=== PATIENT | female | born 1965 | race Caucasian/White ===

== ENCOUNTER 2018-03-03 16:01 | Emergency (ER) | payer OTHER ==
[2018-03-03] MEDS: LORAZEPAM 1 MG TAB PO (17:29)
[2018-03-03 17:42] LABS: ADD MAN DIFF? NO
[2018-03-03 17:44] LABS: BASOPHIL # 0.1 10^3/ul (0.0-0.1); BASOPHILS % 0.7 % (0.0-2.0); EOSINOPHILS # 0.2 10^3/ul (0.0-0.5); EOSINOPHILS % 2.8 % (0.0-7.0); HEMOGLOBIN 13.4 g/dl (12.0-16.0); LYMPHOCYTES # 2.7 10^3/ul (0.8-2.9); LYMPHOCYTES % 38.2 % (15.0-51.0); MEAN CORPUSCULAR HEMOGLOBIN 28.5 pg (29.0-33.0); MEAN CORPUSCULAR HGB CONC 33.5 g/dl (32.0-37.0); MEAN CORPUSCULAR VOLUME 85.1 fl (82.0-101.0); MEAN PLATELET VOLUME 10.4 fl (7.4-10.4); MONOCYTE # 0.5 10^3/ul (0.3-0.9); MONOCYTES % 7.2 % (0.0-11.0); NEUTROPHIL # 3.5 10^3/ul (1.6-7.5); NEUTROPHILS % 50.4 % (39.0-77.0); PLATELET COUNT 165 10^3/UL (140-415); RED CELL DISTRIBUTION WIDTH 13.5 % (11.5-14.5)
[2018-03-03 18:03] LABS: ALANINE AMINOTRANSFERASE 80 IU/L (13-69); ALBUMIN 4.6 g/dl (3.3-4.9); ALBUMIN/GLOBULIN RATIO 1.53; ALKALINE PHOSPHATASE 81 IU/L (42-121); ANION GAP 15 (8-16); ASPARTATE AMINO TRANSFERASE 40 IU/L (15-46); BILIRUBIN,INDIRECT 0.4 mg/dl (0-1.1); BILIRUBIN,TOTAL 0.4 mg/dl (0.2-1.3); BLOOD UREA NITROGEN 9 mg/dl (7-20); CALCIUM 9.4 mg/dl (8.4-10.2); CARBON DIOXIDE 30 mmol/L (21-31); CHLORIDE 104 mmol/L (97-110); CREATININE 0.76 mg/dl (0.44-1.00); GLUCOSE 95 mg/dl (70-220); SODIUM 145 mmol/L (135-144); TOTAL PROTEIN 7.6 g/dl (6.1-8.1)
[2018-03-03 18:14] LABS: TROPONIN-I < 0.012 ng/ml (0.000-0.120)
== END 2018-03-03 18:55 | disposition home or self-care (01) ==
LOC: FTE 16:01
DX: R06.02 Shortness of breath (principal)
CPT/HCPCS: 36415; 71045; 80053; 84484; 85025; 93005; 99285-25

== ENCOUNTER 2018-03-16 14:41 | Emergency (ER) | payer OTHER ==
[2018-03-16 15:55] LABS: URINE BLOOD (Dip) POC Trace-intact (NEGATIVE); URINE GLUCOSE (Dip) POC Negative (NEGATIVE); URINE KETONES (Dip) POC Trace (NEGATIVE); URINE LEUKOCYTE EST (Dip) POC 2+ (NEGATIVE); URINE NITRITE (Dip) POC Positive (NEGATIVE); URINE TOTAL PROTEIN POC 1+ (NEGATIVE)
[2018-03-16] MEDS: LORAZEPAM 0.5 MG TAB PO (15:56)
[2018-03-16] MEDS: CEPHALEXIN 500 MG CAP PO (16:15)
== END 2018-03-16 16:56 | disposition home or self-care (01) ==
LOC: FTE 14:41
DX: F41.9 Anxiety disorder, unspecified (principal)
CPT/HCPCS: 81003; 93005; 99284

== ENCOUNTER 2018-04-12 07:06 | Day surgery (SDC) | payer OTHER ==
[2018-04-12] MEDS ORDERED: LACTATED RINGER'S 1,000 ML IV (08:00)
[2018-04-12] MEDS ORDERED: LIDOCAINE 100 MG SYRINGE (08:32)
[2018-04-12] MEDS ORDERED: PROPOFOL 40 ML (08:32)
[2018-04-12] MEDS ORDERED: CEFAZOLIN 1 GM INJ (08:32)
[2018-04-12] MEDS ORDERED: FENTAnyl 50 MCG/ML VIAL (08:32)
[2018-04-12] MEDS ORDERED: MIDAZOLAM 1 MG/ML 2 ML INJ (08:35)
[2018-04-12] MEDS ORDERED: DEXAMETHASONE 4 MG/ML 1 ML INJ (09:54)
[2018-04-12] MEDS ORDERED: ONDANSETRON 4 MG INJ (09:55)
[2018-04-12] MEDS ORDERED: METOCLOPRAMIDE 10 MG INJ (09:55)
[2018-04-12] MEDS ORDERED: FAMOTIDINE 20 MG INJ (09:55)
[2018-04-12] MEDS: CEFAZOLIN 2 GM/50 ML (PMX) 50 ML IVPB (10:00)
[2018-04-12] MEDS ORDERED: FENTAnyl 50 MCG/ML VIAL IV ×3 (11:00)
[2018-04-12] MEDS ORDERED: KETOROLAC 30 MG INJ IV ×2 (11:00)
[2018-04-12] MEDS ORDERED: MEPERIDINE 25 MG INJ IV (11:00)
[2018-04-12] MEDS ORDERED: OXYCODONE/ACETAMINOPHEN (5/325) TAB PO ×2 (11:00)
[2018-04-12] MEDS: ONDANSETRON 4 MG INJ IV (11:21)
== END 2018-04-12 12:26 | disposition home or self-care (01) ==
LOC: SDS 07:06
DX: N85.00 Endometrial hyperplasia, unspecified (principal); D25.9 Leiomyoma of uterus, unspecified; E66.9 Obesity, unspecified; Z68.36 Body mass index [BMI] 36.0-36.9, adult
CPT/HCPCS: 58558; 84703; 88305; 93005